=== PATIENT | female | born 1995 | race Caucasian/White ===

== ENCOUNTER → 2017-01-20 | Outpatient (CLI) | payer MEDICAID ==
[~2017-01-20] MED LIST: CLIN1CAP5 PO
== END ==
LOC: HPND 08:13
PROVIDERS: ATTEND Obstetrics & Gynecology
DX: O35.1XX0 Maternal care for (suspected) chromosomal abnormality in fetus, not applicable or unspecified (principal)
CPT/HCPCS: 76811